=== PATIENT | female | born 1965 | race Caucasian/White ===

== ENCOUNTER 2017-08-29 17:56 | Inpatient (IN) | payer BC, OTHER ==
[~2017-08-29] VITALS: Ht 167.6 cm; Wt 59.0 kg
[2017-08-29 18:25] VITALS: BP 144/94
--- NOTE | 2017-08-29 18:27 | NUR ---
INTAKE PRE-ADMISSION Pt is in intake office at this time with spouse at side. 52 year old female admitted for ETOH withdrawals. Pt is A/O x4, speech is clear and coherent. Pt states she last drank 1/2 bottle of wine and "some Vodka, a few hours ago." Reports hx of withdrawal seizures, last seizure was in March 2017. V/S are 144/94, HR is 115, SpO2 is 97% room air, denies pain. Pt reports medical hx of hypothyroidism and dry eyes. Admitting nurse to complete assessment when patient arrives on unit.
[2017-08-29] MEDS ORDERED: LORAZEPAM 1 MG TABLET PO PRN (19:15)
[2017-08-29] MEDS ORDERED: ONDANSETRON ODT 4 MG TAB.RAPDIS SL PRN (19:15)
[2017-08-29] MEDS ORDERED: MIRALAX 17 GM POWD.PACK PO PRN (19:15)
[2017-08-29] MEDS ORDERED: LORAZEPAM 2 MG/1 ML VIAL IM PRN (19:15)
[2017-08-29] MEDS ORDERED: LOPERAMIDE HCL 2 MG CAPSULE PO PRN ×2 (19:15)
[2017-08-29] MEDS ORDERED: MAG HYDROX/AL HYDROX/SIMETH 30 ML LIQUID UDC PO PRN (19:15)
[2017-08-29] MEDS ORDERED: ACETAMINOPHEN 325 MG TABLET PO PRN (19:15)
[2017-08-29] MEDS ORDERED: ONDANSETRON 4 MG/2 ML VIAL IM PRN (19:15)
[2017-08-29 20:00] VITALS: BP 130/70
[2017-08-29 20:21] LABS: BASOPHILS % (AUTO) 0.5 % (0.0-2.0); EOSINOPHILS % (AUTO) 0.7 % (0.0-7.0); HEMATOCRIT 41.2 % (37-47); HEMOGLOBIN 13.9 G/DL (12.0-16.0); LYMPHOCYTES % (AUTO) 31.6 % (20.5-51.5); MEAN CORPUSCULAR HEMOGLOBIN 33.1 UUG (27.0-31.0); MEAN CORPUSCULAR HGB CONC 34 g/dL (32.0-37.0); MEAN CORPUSCULAR VOLUME 98.4 FL (81.0-99.0); MONOCYTES # (AUTO) 0.4 K/UL (0.1-1.30); MONOCYTES % (AUTO) 10.8 % (0.0-11.0); NEUTROPHILS # (AUTO) 1.9 K/UL (1.8-8.9); NEUTROPHILS % (AUTO) 56.4 % (38.5-71.5); PLATELET COUNT (AUTO) 79 K/UL (150-450); RED BLOOD CELL COUNT(AUTO) 4.19 MIL/UL (4.2-5.4); WHITE BLOOD COUNT (AUTO) 3.3 K/UL (4.0-11.2)
[2017-08-29 20:30] LABS: *AMPHETAMINE, URINE NEGATIVE (NEGATIVE); *BARBITURATE, URINE NEGATIVE (NEGATIVE); *CANNABINOID, URINE NEGATIVE (NEGATIVE); *COCCAINE, URINE NEGATIVE (NEGATIVE); *OPIATE, URINE NEGATIVE (NEGATIVE); *PHENCYCLIDINE SCREEN,URINE NEGATIVE (NEGATIVE)
[2017-08-29 20:39] LABS: BILIRUBIN,TOTAL 0.4 mg/dL (0.2-1.0); CREATININE 0.7 mg/dL (0.6-1.3); MAGNESIUM 1.9 mg/dL (1.8-2.4); POTASSIUM 4.2 mmol/L (3.5-5.1); TOTAL PROTEIN, SERUM 8.8 g/dL (6.4-8.2)
[2017-08-29 20:59] LABS: *URINE HCG, QUAL NEGATIVE (NEGATIVE)
[2017-08-29] MEDS ORDERED: LORAZEPAM 1 MG TABLET PO ONE (21:00)
[2017-08-29 21:01] LABS: THYROID STIMULATING HORMONE 5.714 mIU/mL (0.358-3.740)
[2017-08-29 21:06] LABS: BAND % (MANUAL) 3 % (0-10); LYMPHOCYTES % (MANUAL) 29 % (20-40); MONOCYTES % (MANUAL) 9 % (2-10); NEUTROPHILS % (MANUAL) 59 % (42-75)
[2017-08-29] MEDS ORDERED: THIAMINE HCL 200 MG/2 ML VIAL IM ONE (21:22)
[2017-08-29] MEDS: OXCARBAZEPINE 150 MG TABLET PO SCH (21:24)
[2017-08-29] MEDS ORDERED: OXCARBAZEPINE 150 MG TABLET ONE (21:28)
[2017-08-29] MEDS ORDERED: THIAMINE HCL 200 MG/2 ML VIAL ONE (21:28)
--- NOTE | 2017-08-29 21:30 | NUR ---
The patient is a 52-year-old female who admitted to [facility] for evaluation of medically supervised withdrawal from alcohol. Time of admission is 20:20 on 08/29/2017. Pt. is acutely intoxicated, therefore initial assessment is incomplete (will be endorsed to the day RN). Pt. couldnt give information about PCP, vaccinations., longest sober period. She is NKA, Full Code, on Regular Diet. For the last two years, she reports consuming 1500mL of wine on a daily basis, last used on the day of present admission. She has struggled with multiple attempts at sobriety at home, states this is her first Detox. in the facility. She states her alcohol use has negatively impacted her life by impairing close relationships with family and negatively impacting her physical and mental health. The patient reports a history of withdrawal-induced seizures, last one in July 2017. She also sates multiple passive SI in the past. At the time of admission the patient was acutely intoxicated, hand tremor bilaterally. Pt. is alert, oriented x3, unsteady gate. Perrla. Skin warm and dry to touch. RR=16, even and unlabored. Bilateral hand tremors noted. HT=732/80, MQ=341, Spo2=97%, Temp=98.2, denies pain. Mznqau=157dci, Height=56. CIWA=9 . Pt was oriented to room and unit. Pt. was able to provide UDS sample , see results in the PC chart. Safety measures in place : bed on lowest position with side rails x2 up for safety, call light within reach. Will continue to monitor closely and offer help. SUBSTANCE ABUSE HISTORY : ETOH/Wine 1500ml QD PO last 2 years, last use on 08/29/2017, uses since 1976. Pt. occasionally uses Marijuana. PAST Tx HISTORY : It is her first Detox. PAST MEDICAL HISTORY : Hypothyroidism , Anxiety disorder , Depression, Dry Eyes , Insomnia. Past Family History Her father because pancreatic CA, mother because of ETOH abuse.
[2017-08-30] VITALS: BP 102/67
[2017-08-30] MEDS ORDERED: S-AD400T3 PO (03:16)
[2017-08-30] MEDS ORDERED: BIMA2.5D5 (03:17)
[2017-08-30] MEDS ORDERED: LEVO75TA7 PO (03:18)
[2017-08-30] MEDS ORDERED: TRET20CR5 TP (03:19)
[2017-08-30 04:00] VITALS: BP 137/97
--- NOTE | 2017-08-30 06:53 | NUR ---
END OF SHIFT NOTE : The patient is a 52-year-old female who admitted to [facility] on 08/29/2017 for evaluation of medically supervised withdrawal from alcohol. Pt. was acutely intoxicated, therefore initial assessment is incomplete (will be endorsed to the day RN). Pt. couldnt give information about PCP, vaccinations., longest sober period. She is NKA, Full Code, on Regular Diet. The patient reports a history of withdrawal-induced seizures, last one in July 2017. She also sates multiple passive SI in the past. Pt remains compliant with the treatment plan. No PRNs were given during my shift. V/S remain WNL. RR=16, even and unlabored, lungs clear upon auscultation, abdomen soft and non- distended. Pt denies nausea, vomiting and diarrhea. CIWA taken when pt. was alert during the night, LAST CIWA=5 at 0400 , INTAKE= 50 ml, voided x1 , slept 7 hours. Safety measures in place : bed on lowest position with side rails x2 up for safety, call light within reach. Will continue to monitor closely and offer help.
[2017-08-30] MEDS: LEVOTHYROXINE SODIUM 75 MCG TABLET PO SCH (07:06)
--- NOTE | 2017-08-30 08:00 | NUR ---
START OF SHIFT 52 year old female admitted for ETOH substance abuse and detox. Also history of Marijuana use. NKA. Fall and seizure precautions. History of anxiety, depression, insomnia, hypothyroidism, dry eye. History of seizure 05/2017. Received report from night RN. Last CIWA at 0500 was 5. Slept 7 hours. Pt unable to recall name of PCP and vaccine history upon admission. Day RN to follow up on this information with patient if she is able to recall. 0800 nursing rounds, Pt alert and oriented, very tremulous, reporting nausea. RN to start IVF NS at 125 ml /hr and start IV site. Side rails up x 2 and padded, bed in low position and locked. Call light within reach. Will continue to monitor.
[2017-08-30] MEDS: MULTIVITAMINS,THERAPEUTIC TABLET PO SCH (08:18)
[2017-08-30] MEDS: THIAMINE HCL 100 MG TABLET PO SCH (08:18)
[2017-08-30] MEDS: FOLIC ACID 1 MG TABLET PO SCH (08:18)
[2017-08-30] MEDS: LORAZEPAM 1 MG TABLET PO SCH ×4 (08:18→20:12)
[2017-08-30] MEDS: OXCARBAZEPINE 150 MG TABLET PO SCH (08:19)
[2017-08-30] MEDS: IV NS 1000 ML 1,000 ML IV SCH ×3 (08:20→20:13)
--- NOTE | 2017-08-30 08:31 | NUR ---
PRN MEDICATION ADMINISTRATION Pt with severe nausea, almost unable to swallow oral medications. Given PRN Zofran 4 mg IM. Will reassess.
[2017-08-30] MEDS ORDERED: TUBERCULIN,PURIF.PROT.DERIV. 5 TU/0.1 ML TEST ID ONE (09:00)
--- NOTE | 2017-08-30 09:01 | NUR ---
PRN MEDICATION REASSESSMENT Pt reports decrease in nausea post administration of Zofran IM at 0831. Will continue to monitor.
[2017-08-30] MEDS: LORAZEPAM 1 MG TABLET PO PRN (10:19)
--- NOTE | 2017-08-30 10:19 | NUR ---
PRN MEDICATION ADMINISTRATION Pt noted to have increased tremors. CIWA reassessed and is 15. Given PRN Ativan 1 mg PRN. Will reassess.
--- NOTE | 2017-08-30 11:03 | NUR ---
Therapist prompted client to attend group today, client agreed if she felt up to it she would attend.
--- NOTE | 2017-08-30 11:19 | NUR ---
PRN MEDICATION ADMINISTRATION CIWA 3 one hour after administration of PRN Ativan for CIWA 15 at 1019.
[2017-08-30 12:00] VITALS: BP 132/94
[2017-08-30 13:00] VITALS: BP 147/96
--- NOTE | 2017-08-30 13:00 | NUR ---
Assumed Care: Assumed Care for the patient at this time. Patient is a 52 year old female admitted for ETOH dependence who was placed on a 5-day Ativan taper that was started at 0900 today. Patient is tolerating current taper well. No adverse reactions noted. On IV of NS at 125cc/hr for hydration. IV site to right AC patent and intact. No s/s of infiltration noted. Patient was placed on 1:1 for safety at this time due to unsteady gait related to severe gross tremors. Current CIWA 15. Denies AV hallucinations and S/I or H/I noted. Will continue to monitor.
--- NOTE | 2017-08-30 13:12 | NUR ---
TRANSITION OF CARE NOTE Transition from Day RN to new Day RN. Report given to new RN. 52 year old female admitted for ETOH substance abuse and detox. Also history of Marijuana use. NKA. Fall and seizure precautions. History of anxiety, depression, insomnia, hypothyroidism, dry eye. History of seizure 05/2017. CIWA 15 at 0818, given scheduled Ativan and additional Ativan 1 mg PRN. CIWA at 1119 was 3. At 1220 Pt was asleep. Zofran IM PRN given at 0831 for severe nausea with resolution of nausea. Bedside report done. NS IVF at 125 cc/hr infusing in right arm IV placed today at 0830. BP 132/94 at 1200. BP repeated at 1312, BP now 147/96, reported to new RN and new RN to medicate PRN for HTN. Assisted to restroom. Pt weak and tremulous. 1:1 monitor ordered for safety. Side rails up x 2 and padded, bed in low position and locked. Call light within reach.
[2017-08-30] MEDS: DICYCLOMINE HCL 20 MG TABLET PO PRN (13:16)
[2017-08-30] MEDS: CLONIDINE HCL 0.1 MG TABLET PO PRN ×2 (13:16→20:12)
--- NOTE | 2017-08-30 13:16 | NUR ---
Bentyl 20 mg PO/Clonidine 0.1mg PO given: Patient complained of abdominal spasms, and sweating, chills. BP 147/97. Medicated patient with Bentyl 20 mg PO and Clonidine 0.1mg PO as ordered. Will monitor for effectiveness.
--- NOTE | 2017-08-30 14:16 | NUR ---
Re-assessment: Per patient, PRN Bentyl was effective in reducing abdominal spasms, less anxiety, less sweating noted. BP 132/81.
[2017-08-30 16:00] VITALS: BP 126/95
--- NOTE | 2017-08-30 16:40 | NUR ---
Therapist prompted client to attend groups when she feels better.
--- NOTE | 2017-08-30 18:39 | NUR ---
OT Ativan 2 mg PO given: OT Ativan 2 mg PO given per MD, due to CIWA 10. Patient continues to have gross tremors and sweats. Denies S/I or AV hallucinations. Will monitor for effectiveness.
--- NOTE | 2017-08-30 18:46 | NUR ---
Add'l admission notes: Patient states that her PCP is Dr. John from [place] and refused to receive PNA and FLU VACCINE. Education provided.
--- NOTE | 2017-08-30 18:53 | NUR ---
End of Shift Notes: Patient continues to be on 5-day Ativan taper as ordered. No adverse reactions noted. Patient is tolerating taper well. No adverse reactions noted. VS monitored closely. Medicated patient with Clonidine 0.1mg PO at 1316 for BP 147/97 with help after 1 hour. Withdrawal symptoms were closely monitored. Initial CIWA 15, patient presented with gross tremors, sweating, nausea, anxiety and agitation. Medicated patient with Zofran 4 mg IM at 0831, additional Ativan 1 mg PO at 1019, Bentyl 20 mg PO at 1316 with help after 1 hour. Last CIWA 8. Patient continues to be on IVF for hydration of NS at 125cc/hr. Tolerating well. IV site to right AC patent and intact. Flushed adequately per units protocol. OT Ativan 2 mg PO given at 1839 due to CIWA 10. Results pending. Patient on 1:1 for safety due to unsteady gait and severe gross tremors. Requires sitter at bedside. Unable to participate in group due to her withdrawal symptoms. All needs met and attended. Will continue to monitor closely.
[2017-08-30] MEDS ORDERED: LORAZEPAM 1 MG TABLET PO ONE (19:00)
--- NOTE | 2017-08-30 19:30 | NUR ---
START OF SHIFT Pt is a 52 y/o female admitted on 08/29/17 for ETOH dependence. Pt was dependent on 1,500 ml of wine daily for 2 years. Pt is full code, NKA, regular diet. Pt reports withdrawal related seizures, last in July 2017. Pt reports PMH of anxiety, depression , hypothyroidism, insomnia, dry eyes, rosacea and laryngeal cancer (currently in remission). Pt is on a 5 day Ativan taper started today, tolerating well. Pt is on a 1:1 sitter for safety r/t unsteady gait. Pt has IV in right AC, no redness or swelling noted. 0.9% NS running at 125 ml/hr per order d/t minimal tolerance of oral intake. Upon assessment pt is laying in bed watching TV, sitter at bedside. Pt presents with anxiety, pain at IV site 5/10, decreased appetite, headache, difficulty concentrating, anhedonia, gross tremors, unsteady gait, and photosensitivity. Respirations 16, even and unlabored. Denies N/V/D. Denies chest pain or SOB. Medications due. Safety measures in place. Call light within reach. Will continue to monitor.
--- NOTE | 2017-08-30 19:40 | NUR ---
2 MG ATIVAN REASSESSMENT CIWA 3. Tremors, anxiety, and sweats decreased. Pt verbalizes improvement in symptoms. Safety measures in place Call light within reach. Will continue to monitor. Addendum: 08/31/17 at 0011 by MELBA COUGHLIN RN 1:1 sitter at bedside.
[2017-08-30 20:00] VITALS: BP 148/97
[2017-08-30] MEDS: diphenhydrAMINE 50 MG CAPSULE PO PRN (20:12)
[2017-08-30] MEDS: IBUPROFEN 400 MG TABLET PO PRN (20:12)
--- NOTE | 2017-08-30 20:12 | NUR ---
PRN MOTRIN 400 MG, BENADRYL 50 MG AND CLONIDINE 0.1 MG ADMINISTRATION Pt has pain at IV site and near left UA, described as a "strain" feeling in UA 03/14. Pt requests sleep aid. BP 148/97, Clonidine administered per orders for BP > 140/90. Safety measures in place Call light within reach. Will continue to monitor. Addendum: 08/31/17 at 0011 by MELBA COUGHLIN RN 1:1 sitter at bedside.
[2017-08-30] MEDS ORDERED: OXCARBAZEPINE 300 MG TABLET PO SCH (21:00)
--- NOTE | 2017-08-30 21:12 | NUR ---
JIMBO LOCKE, BENADRYL AND CLONIDINE REASSESSMENT Pt is laying in bed with eyes closed. Safety measures in place Call light within reach. Will continue to monitor. Addendum: 08/31/17 at 0011 by MELBA COUGHLIN RN 1:1 sitter at bedside
[2017-08-31] VITALS: BP 124/85
--- NOTE | 2017-08-31 | NUR ---
CIWA DEFERRED Pt is laying in bed with eyes closed. Respirations 14, even and unlabored. Safety measures in place Call light within reach. Will continue to monitor.
[2017-08-31 04:00] VITALS: BP 135/99
--- NOTE | 2017-08-31 04:00 | NUR ---
CIWA DEFERRED Pt is laying in bed with eyes closed. Respirations 14, even and unlabored. Safety measures in place. Call light within reach. Will continue to monitor.
[2017-08-31] MEDS: IV NS 1000 ML 1,000 ML IV SCH ×3 (05:00→21:00)
[2017-08-31] MEDS: LEVOTHYROXINE SODIUM 75 MCG TABLET PO SCH (06:57)
--- NOTE | 2017-08-31 07:16 | NUR ---
END OF SHIFT Pt is a 52 y/o female admitted on 08/29/17 for ETOH dependence. Pt was dependent on 1500 ml of wine daily for 2 years. Pt is full code, NKA, regular diet, fall/seizure precautions. Pt reports withdrawal related seizures, last in July 2017. Pt reports PMH of anxiety, depression , hypothyroidism, insomnia, dry eyes, rosacea and laryngeal cancer (currently in remission). Pt is on a 5 day Ativan taper started today, tolerating well. Pt is on a 1:1 sitter for safety r/t unsteady gait. Pt has IV in right AC 22 gauge, no redness or swelling noted. IV site is patent and intact. 0.9% NS running at 125 ml/hr per orders. 1,000ml NS administered x 2 during shift. Pt presented with anxiety, pain at IV site 5/10 (decreased to 2/10 during shift), decreased appetite, headache, difficulty concentrating, anhedonia, gross tremors, unsteady gait, and photosensitivity. Scheduled medications and PRN Benadryl, Motrin and Clonidine administered, effective in S/S of withdrawal as verbalized by pt. Last CIWA 3, all other CIWAs deferred d/t pt laying in bed with eyes closed throughout the night. Denies N/V/D. Slept 7 hours, intake 50 ml, void x 3, stool x 0. Safety measures in place. Call light within reach. Pts needs have been met. Endorsed to day shift nurse.
--- NOTE | 2017-08-31 07:25 | NUR ---
Start of shift note SBAR report rcv'd. Pt was admitted for ETOH dependence. Pt denies any allergies, is a full code and on a regular diet. Pt has a PMHx of dry eyes, anxiety, depression, seizures, hypothyroidism, insomnia, s/p laryngeal cancer, and rosacea. Pt has IVF fluids, NS infusing at 125ml/hr to R AC. Pt is on a 1:1 for safety, sitter is at the bedside. Pt has no complaints at this time. Will continue to monitor pt. Pt is on day 2 of her 5 day ativan taper. All needs addressed at tis time.
[2017-08-31 08:00] VITALS: BP 99/58
[2017-08-31] MEDS: FOLIC ACID 1 MG TABLET PO SCH (08:04)
[2017-08-31] MEDS: LORAZEPAM 1 MG TABLET PO SCH ×3 (08:04→20:08)
[2017-08-31] MEDS: THIAMINE HCL 100 MG TABLET PO SCH (08:04)
[2017-08-31] MEDS: MULTIVITAMINS,THERAPEUTIC TABLET PO SCH (08:04)
[2017-08-31 08:43] LABS: BILIRUBIN,DIRECT 0.2 mg/dL (0.0-0.2); BILIRUBIN,TOTAL 0.8 mg/dL (0.2-1.0); CREATININE 0.7 mg/dL (0.6-1.3); MAGNESIUM 1.7 mg/dL (1.8-2.4); PHOSPHOROUS 3.2 mg/dL (2.5-4.9); POTASSIUM 3.9 mmol/L (3.5-5.1)
--- NOTE | 2017-08-31 08:45 | NUR ---
IV site d/c Pt c/o pain 5/10 at IV site, bleeding and bruising noted to site. IV site d/c'd. Dr Pearson aware. Pt is a "hard stick". No veins visible at this time, checked by second RN. Pt PO fluids encouraged. Dr Pearson ok to d/c IV and fluids at this time. Pt verbalized her understanding. Will continue to monitor pt.
[2017-08-31] MEDS ORDERED: OXCARBAZEPINE 150 MG TABLET PO SCH (09:00)
[2017-08-31 11:49] LABS: BASOPHILS % (AUTO) 0.7 % (0.0-2.0); EOSINOPHILS # (AUTO) 0.1 K/uL (0.0-0.7); EOSINOPHILS % (AUTO) 3.3 % (0.0-7.0); HEMATOCRIT 37.7 % (37-47); HEMOGLOBIN 12.8 G/DL (12.0-16.0); LYMPHOCYTES # (AUTO) 0.3 K/UL (0.8-4.8); LYMPHOCYTES % (AUTO) 15.8 % (20.5-51.5); MEAN CORPUSCULAR HEMOGLOBIN 33.1 UUG (27.0-31.0); MEAN CORPUSCULAR HGB CONC 34 g/dL (32.0-37.0); MEAN CORPUSCULAR VOLUME 97.4 FL (81.0-99.0); MONOCYTES # (AUTO) 0.3 K/UL (0.1-1.30); MONOCYTES % (AUTO) 12.7 % (0.0-11.0); NEUTROPHILS # (AUTO) 1.5 K/UL (1.8-8.9); NEUTROPHILS % (AUTO) 67.5 % (38.5-71.5); RED BLOOD CELL COUNT(AUTO) 3.87 MIL/UL (4.2-5.4)
[2017-08-31 12:00] VITALS: BP 135/95
[2017-08-31 12:00] LABS: PLATELET COUNT (AUTO) 30 K/UL (150-450); WHITE BLOOD COUNT (AUTO) 2.2 K/UL (4.0-11.2)
--- NOTE | 2017-08-31 12:02 | NUR ---
CRITICAL LAB VALUE/ COMMUNICATION mechanical manufacturing technician Mally Gustafson called to report critical labs. WBC is 2.2 and Platelets are 30. Dr. Pearson notified and aware, NNO at this time. Primary nurse to follow up.
[2017-08-31 12:07] LABS: HEPATITIS B SURFACE AG Negative (Negative)
[2017-08-31] MEDS ORDERED: MAGNESIUM OXIDE 400 MG TABLET PO ONE ×2 (12:45→21:00)
[2017-08-31 13:05] LABS: BAND % (MANUAL) 5 % (0-10); EOSINOPHILS % (MANUAL) 2 % (0-8); LYMPHOCYTES % (MANUAL) 18 % (20-40); MONOCYTES % (MANUAL) 8 % (2-10); NEUTROPHILS % (MANUAL) 67 % (42-75)
--- NOTE | 2017-08-31 15:16 | NUR ---
Therapist met with client and prompted her to attend group. CLient will not attend today she is still in withdrawal.
[2017-08-31 16:00] VITALS: BP 147/104
[2017-08-31] MEDS: LORAZEPAM 1 MG TABLET PO PRN (16:13)
[2017-08-31] MEDS: CLONIDINE HCL 0.1 MG TABLET PO PRN ×2 (16:14→20:08)
--- NOTE | 2017-08-31 16:15 | NUR ---
PRN administration Pt c/o anxiety, has a CIWA of 13 and BP of 147/101 with a heart rate of 104. Administered PRN ativan and clonidine per MD order. Will continue to monitor pt.
--- NOTE | 2017-08-31 16:50 | NUR ---
communication, d/1 1:1 Pt states that she does not want to be on a the 1:1 sitter, notified Dr Pearson, gave OK to D/C 1:1. Pt educated on importance of using call light every time she wants to get up, and if pt is seen standing without assistance, she will be placed back on a 1:1. Pt verbalized her understanding. Call light within reach. Will continue to monitor pt.
--- NOTE | 2017-08-31 17:15 | NUR ---
Reassessment Pt has a CIWA of 6, states that she feels better and has a BP of 135/95 HR 79. Will continue to monitor pt.
[2017-08-31] MEDS ORDERED: hydrALAZINE HCL 50 MG TABLET PO PRN (18:15)
--- NOTE | 2017-08-31 18:47 | NUR ---
End of shift note Pt was admitted for ETOH dependence. Pt has a PMHx of dry eyes, anxiety, depression, seizures, hypothyroidism, insomnia, s/p laryngeal cancer, and rosacea. Pt denies any allergies, is a full code and on a regular diet. Pt IV fluids and 1:1 were d/cd during the shift. Pt had one PRN ativan and prn clonidine with effectiveness during the shift. Pt had a CIWA of 6 at 1714. Pt PO fluids encouraged and PO intake encouraged. Pt voided x 6 times and had 3 BMs during the shift. Pt has no complaints at this time. Will endorse SBAR to oncoming nurse.
--- NOTE | 2017-08-31 19:30 | NUR ---
START OF SHIFT Pt is a 52 y/o female admitted on 08/29/17 for ETOH dependence. Pt was dependent on 1,500 ml of wine daily for 2 years. Pt is full code, NKA, regular diet. Pt reports withdrawal related seizures, last in July 2017. Pt reports PMH of anxiety, depression , hypothyroidism, insomnia, dry eyes, rosacea and laryngeal cancer (currently in remission). Pt is on a 5 day Ativan taper started on 08/30/17, tolerating well. Orders for 1:1 sitter d/c, pt has improvement with unsteady gait, but pt states she will use call light when need to get out of bed. Pt verbalized understanding that 1:1 will be ordered if she is out of bed without assistance. IV d/c today, pt tolerating fluids and food. Upon assessment pt is laying in bed and presents with depressed affect and is in tears r/t feelings of anxiety. Pt also presents with decreased appetite, chronic low back pain 4/10, headache, difficulty concentrating, anhedonia, gross tremors, unsteady gait and photosensitivity. Respirations 16, even and unlabored. Denies N/V/D. Denies chest pain or SOB. Medications due. Safety measures in place. Call light within reach. Will continue to monitor.
[2017-08-31 20:00] VITALS: BP 140/98
[2017-08-31] MEDS: OXCARBAZEPINE 300 MG TABLET PO SCH (20:08)
--- NOTE | 2017-08-31 20:08 | NUR ---
PRN CLONIDINE AND MOTRIN ADMINISTRATION BP 140/98, orders to give if BP > 140/90. Pt also reports pain in lower back (chronic) 02/12. Safety measures in place. Call light within reach. Will continue to monitor.
[2017-08-31] MEDS: IBUPROFEN 400 MG TABLET PO PRN (20:09)
--- NOTE | 2017-08-31 21:00 | NUR ---
NON ADMIN IVF Pt has D/C IV per orders. Pt continues to tolerate fluids/food. Encouraged further fluid intake. Pt verbalizes understanding.
--- NOTE | 2017-08-31 21:08 | NUR ---
PRN CLONIDINE AND MOTRIN REASSESSMENT BP 132/76. Pt reports pain 0/10 in back. Pt is laying in bed with eyes closed. Safety measures in place. Call light within reach. Will continue to monitor.
[2017-09-01] VITALS: BP 138/97
--- NOTE | 2017-09-01 | NUR ---
CIWA DEFERRED Pt is laying in bed with eyes closed, CIWA deferred, to be assessed when pt is fully awake per orders. Respirations 16, even and unlabored. Safety measures in place. Call light within reach. Will continue to monitor.
[2017-09-01 04:00] VITALS: BP 138/85
[2017-09-01] MEDS: IV NS 1000 ML 1,000 ML IV SCH (05:00)
--- NOTE | 2017-09-01 05:00 | NUR ---
NON ADMIN IVF Pt has D/C IV per orders. Pt continues to tolerate fluids/food. Encouraged further fluid intake. Pt verbalizes understanding. Pt is laying in bed with eyes closed. Safety measures in place. Call light within reach. Will continue to monitor.
[2017-09-01] MEDS: LEVOTHYROXINE SODIUM 75 MCG TABLET PO SCH (07:07)
--- NOTE | 2017-09-01 07:15 | NUR ---
Start of shift note SBAR report rcv'd. Pt was admitted for ETOH dependence. Pt denies any allergies, is a full code and on a regular diet. Pt has a PMHx of dry eyes, anxiety, depression, seizures, hypothyroidism, insomnia, s/p laryngeal cancer, and rosacea. Pt is currently resting in bed, pt verbalized her understanding of the importance of calling for assistance when ambulating. Pt is on day 3 of her ativan taper and tolerating well per report. Pt is scheduled to have a PT evaluation done during the shift. Pt has no complaints at this time. Will continue to monitor pt.
--- NOTE | 2017-09-01 07:15 | NUR ---
END OF SHIFT Pt is a 52 y/o female admitted on 08/29/17 for ETOH dependence. Pt was dependent on 1,500 ml of wine daily for 2 years. Pt is full code, NKA, regular diet. Pt reports withdrawal related seizures, last in July 2017. Pt reports PMH of anxiety, depression , hypothyroidism, insomnia, dry eyes, rosacea and laryngeal cancer (currently in remission). Pt is on a 5 day Ativan taper started on 08/30/17, tolerating well. Orders for 1:1 sitter d/c yesterday, pt has slight improvement with unsteady gait, pt states she will use call light when needs to get out of bed. Pt verbalized understanding that 1:1 will be ordered if she is out of bed without assistance. IV d/c yesterday, pt tolerating fluids and food. Pt presented with depressed affect and was tearful r/t feelings of anxiety. Pt also presented with decreased appetite, chronic low back pain 4/10, headache, difficulty concentrating, anhedonia, gross tremors, unsteady gait and photosensitivity. Scheduled medications and PRN Clonidine and Motrin administered, effective in S/S of withdrawal as verbalized by pt. Last CIWA 7 at 1999, all other CIWAs deferred d/t pt sleeping. Pt slept 9 hours. Intake 1291 ml, void x 2, stool x 0. Safety measures in place. Call light within reach. Pts needs have been met. Endorsed to day shift nurse.
[2017-09-01 08:00] VITALS: BP 91/61
[2017-09-01 08:44] LABS: BASOPHILS % (AUTO) 0.5 % (0.0-2.0); EOSINOPHILS # (AUTO) 0.1 K/uL (0.0-0.7); EOSINOPHILS % (AUTO) 3.6 % (0.0-7.0); HEMATOCRIT 38.8 % (37-47); HEMOGLOBIN 13.4 G/DL (12.0-16.0); LYMPHOCYTES # (AUTO) 0.5 K/UL (0.8-4.8); LYMPHOCYTES % (AUTO) 18.9 % (20.5-51.5); MEAN CORPUSCULAR HEMOGLOBIN 33.9 UUG (27.0-31.0); MEAN CORPUSCULAR HGB CONC 35 g/dL (32.0-37.0); MEAN CORPUSCULAR VOLUME 98.3 FL (81.0-99.0); MONOCYTES # (AUTO) 0.3 K/UL (0.1-1.30); MONOCYTES % (AUTO) 11.3 % (0.0-11.0); NEUTROPHILS # (AUTO) 1.8 K/UL (1.8-8.9); NEUTROPHILS % (AUTO) 65.7 % (38.5-71.5); RED BLOOD CELL COUNT(AUTO) 3.95 MIL/UL (4.2-5.4); WHITE BLOOD COUNT (AUTO) 2.7 K/UL (4.0-11.2)
[2017-09-01 08:49] LABS: CREATININE 0.6 mg/dL (0.6-1.3); MAGNESIUM 1.6 mg/dL (1.8-2.4); PHOSPHOROUS 3.5 mg/dL (2.5-4.9); POTASSIUM 3.5 mmol/L (3.5-5.1)
[2017-09-01 08:50] LABS: PLATELET COUNT (AUTO) 41 K/UL (150-450)
[2017-09-01] MEDS: MULTIVITAMINS,THERAPEUTIC TABLET PO SCH (08:54)
[2017-09-01] MEDS: THIAMINE HCL 100 MG TABLET PO SCH (08:54)
[2017-09-01] MEDS: LORAZEPAM 1 MG TABLET PO SCH ×3 (08:54→16:37)
[2017-09-01] MEDS: FOLIC ACID 1 MG TABLET PO SCH (08:54)
[2017-09-01] MEDS: OXCARBAZEPINE 300 MG TABLET PO SCH ×2 (08:54→21:07)
[2017-09-01] MEDS ORDERED: LORAZEPAM 1 MG TABLET PO SCH ×2 (09:00→21:00)
[2017-09-01 09:38] LABS: BAND % (MANUAL) 2 % (0-10); EOSINOPHILS % (MANUAL) 4 % (0-8); LYMPHOCYTES % (MANUAL) 20 % (20-40); MONOCYTES % (MANUAL) 8 % (2-10); NEUTROPHILS % (MANUAL) 66 % (42-75)
[2017-09-01 12:00] VITALS: BP 138/100
[2017-09-01] MEDS ORDERED: MAGNESIUM OXIDE 400 MG TABLET PO ONE (12:15)
[2017-09-01] MEDS: CLONIDINE HCL 0.1 MG TABLET PO PRN (14:09)
--- NOTE | 2017-09-01 14:10 | NUR ---
PRN administration Pt c/o anxiety, BP checked, noted to be 146/104, HR 105. Administered PRN clondine per MD order. Will continue to monitor pt. Encouraged pt to verbalize her feelings to work through her emotions.
--- NOTE | 2017-09-01 15:10 | NUR ---
Reassessment Pt states that she is "feeling a little better, especially after talking with my ." Pt BP noted to be 135/99 HR is 97. Will continue to monitor pt. Pt reminded about asking for assistance with ambulation, pt verbalized her understanding. Order to d/c 1:1 d/c'd late, Dr Pearson was unable to d/c order on 08/31/17.
[2017-09-01 16:30] VITALS: BP 130/96
--- NOTE | 2017-09-01 18:54 | NUR ---
End of shift note Pt was admitted for ETOH dependence. Pt has a PMHx of dry eyes, anxiety, depression, seizures, hypothyroidism, insomnia, s/p laryngeal cancer, and rosacea. Pt denies any allergies, is a full code and on a regular diet. Pt is currently resting in bed, pt verbalized her understanding of the importance of calling for assistance when ambulating. Pt is on day 3 of her ativan taper and tolerating well without any ASE. pt was evaluated by PT and will start physical therapy daily to improve her gait. Pt has an abdominal ultrasound scheduled for tomorrow morning, pt is to be NPO after midnight. Pt verbalized her understanding. All needs addressed at this time. Will endorse SBAR to oncoming nurse.
--- NOTE | 2017-09-01 19:30 | NUR ---
START OF SHIFT Pt is a 52 y/o female admitted on 08/29/17 for ETOH dependence. Pt was dependent on 1,500 ml of wine daily for 2 years. Pt is full code, NKA, regular diet. Pt reports withdrawal related seizures, last in July 2017. Pt reports PMH of anxiety, depression , hypothyroidism, insomnia, dry eyes, rosacea and laryngeal cancer (currently in remission). Pt is on a 5 day Ativan taper started on 08/30/17, tolerating well. Pt has hx of being on 1:1 for unsteady gait. Unsteady gait is improved and pt instructed to use call light when she needs to get out of bed, she verbalized understanding. Upon assessment pt is laying in bed and presents with depressed affect, anxiety, fatigue, occasional sense of panic, restlessness, decreased appetite, difficulty concentrating, anhedonia, fine/gross tremors, and photosensitivity. Respirations 16, even and unlabored. Denies N/V/D. Denies chest pain or SOB. Medications due. Safety measures in place. Call light within reach. Will continue to monitor. Addendum: 09/01/17 at 2146 by MELBA COUGHLIN RN PT IS NPO AFTER MIDNIGHT FOR ABDOMINAL U/S TOMORROW, INSTRUCTED PT, SHE VERBALIZED UNDERSTANDING.
[2017-09-01 20:00] VITALS: BP 123/88
[2017-09-01] MEDS: diphenhydrAMINE 50 MG CAPSULE PO PRN (21:07)
--- NOTE | 2017-09-01 21:07 | NUR ---
PRN BENADRYL 50 MG ADMINISTRATION Pt requests sleep aid. Safety measures in place. Call light within reach. Reminded client to use call light when she needs to get out of bed. Reminded client NPO after midnight (except meds) for abdominal Ultrasound tomorrow. Client verbalized understanding. Will continue to monitor.
--- NOTE | 2017-09-01 22:07 | NUR ---
PRN BENADRYL REASSESSMENT Pt is laying in bed with eyes closed. Safety measures in place. Call light within reach. Will continue to monitor.
[2017-09-02] VITALS: BP 135/97
[2017-09-02] MEDS: DICYCLOMINE HCL 20 MG TABLET PO PRN (00:21)
[2017-09-02] MEDS: CLONIDINE HCL 0.1 MG TABLET PO PRN ×2 (00:22→18:27)
--- NOTE | 2017-09-02 00:22 | NUR ---
PRN CLONIDINE AND BENTYL ADMINISTRATION BP 135/97, orders to give if BP between 140-159/90-99. Pt also complains of stomach cramps 5/10. Stomach cramps likely related to loose/watery stools. Pt has had 3 stools total in past 24 hours, will continue to monitor if need Imodium. Safety measures in place. Reminded client she is NPO and to use call light to get out of bed, pt verbalized understanding. Will continue to monitor.
--- NOTE | 2017-09-02 01:22 | NUR ---
PRN BENTYL AND CLONIDINE REASSESSMENT Pt is laying in bed with eyes closed. Will continue to monitor abdominal spasms when pt is awake. Safety measures in place. Call light within reach.
--- NOTE | 2017-09-02 04:00 | NUR ---
VITALS REFUSED AND CIWA DEFERRED Pt is laying in bed with eyes closed, CIWA deferred, to be assessed when pt is fully awake per orders. Pt refused vitals. Respirations 16, even and unlabored. Safety measures in place. Call light within reach. Will continue to monitor.
[2017-09-02] MEDS: LEVOTHYROXINE SODIUM 75 MCG TABLET PO SCH (06:51)
--- NOTE | 2017-09-02 07:14 | NUR ---
END OF SHIFT Pt is a 52 y/o female admitted on 08/29/17 for ETOH dependence. Pt was dependent on 1,500 ml of wine daily for 2 years. Pt is full code, NKA, regular diet. Pt reports withdrawal related seizures, last in July 2017. Pt reports PMH of anxiety, depression , hypothyroidism, insomnia, dry eyes, rosacea and laryngeal cancer (currently in remission). Pt is on a 5 day Ativan taper started on 08/30/17, tolerating well. Pt has hx of being on 1:1 for unsteady gait. Unsteady gait improved and pt instructed to use call light when she needs to get out of bed, she verbalized understanding. Pt NPO after midnight except meds for abdominal U/S scheduled today, client verbalized understanding and was. Pt presented with depressed affect, anxiety, fatigue, occasional sense of panic, restlessness, decreased appetite, difficulty concentrating, anhedonia, fine/gross tremors, stomach cramps, loose/watery stool and photosensitivity. Scheduled medications and PRN Benadryl, Clonidine and Bentyl administrated, effective in S/S of withdrawal AEB CIWA 6 lowered to CIWA 3 during shift. Pt slept 9 hours. Intake 100 ml, void x 2, stool x 1. Safety measures in place. Call light within reach. Pts needs have been met. Endorsed to day shift nurse.
--- NOTE | 2017-09-02 07:46 | NUR ---
START OF SHIFT NOTE Received report from night nurse, 52 year old male admitted for ETOH dependence. Patient has a PMH of anxiety, depression , hypothyroidism, insomnia, dry eyes, rosacea and laryngeal cancer (currently in remission). Patient cont on 5 days Ativan taper tolerating well. Per endorsement patient received PRN Benadryl, Clonidine, Bentyl effective per night nurse, Patient slept for 9 hours, Last CIWA was-3. Per endorsement patient is NPO for abdominal ultrasound, after mid night expect Meds,Patient received awake,alert and oriented x4, Educated patient regarding plan of care for the day and medication regimen with good verbal understanding. Safety measures in place. call light with in reach, will continue to monitor.
[2017-09-02 08:00] VITALS: BP 107/75
[2017-09-02] MEDS: THIAMINE HCL 100 MG TABLET PO SCH (08:37)
[2017-09-02] MEDS: MULTIVITAMINS,THERAPEUTIC TABLET PO SCH (08:37)
[2017-09-02] MEDS: OXCARBAZEPINE 300 MG TABLET PO SCH ×2 (08:37→21:09)
[2017-09-02] MEDS: LORAZEPAM 1 MG TABLET PO SCH ×3 (08:37→21:09)
[2017-09-02] MEDS: FOLIC ACID 1 MG TABLET PO SCH (08:37)
[2017-09-02 09:11] LABS: CREATININE 0.6 mg/dL (0.6-1.3); MAGNESIUM 1.7 mg/dL (1.8-2.4); PHOSPHOROUS 4.1 mg/dL (2.5-4.9)
[2017-09-02 09:15] LABS: *RHEUMATOID FACTOR SCREEN NEGATIVE (NEGATIVE)
[2017-09-02 11:05] LABS: BASOPHILS % (AUTO) 0.4 % (0.0-2.0); EOSINOPHILS # (AUTO) 0.1 K/uL (0.0-0.7); EOSINOPHILS % (AUTO) 3.5 % (0.0-7.0); HEMATOCRIT 38.6 % (37-47); HEMOGLOBIN 13.1 G/DL (12.0-16.0); LYMPHOCYTES # (AUTO) 0.7 K/UL (0.8-4.8); LYMPHOCYTES % (AUTO) 20.6 % (20.5-51.5); MEAN CORPUSCULAR HEMOGLOBIN 33.1 UUG (27.0-31.0); MEAN CORPUSCULAR HGB CONC 34 g/dL (32.0-37.0); MONOCYTES # (AUTO) 0.6 K/UL (0.1-1.30); MONOCYTES % (AUTO) 16.3 % (0.0-11.0); NEUTROPHILS % (AUTO) 59.2 % (38.5-71.5); RED BLOOD CELL COUNT(AUTO) 3.94 MIL/UL (4.2-5.4); WHITE BLOOD COUNT (AUTO) 3.4 K/UL (4.0-11.2)
[2017-09-02 11:07] LABS: PLATELET COUNT (AUTO) 67 K/UL (150-450)
[2017-09-02 12:00] VITALS: BP 137/96
[2017-09-02 12:32] LABS: BAND % (MANUAL) 3 % (0-10); EOSINOPHILS % (MANUAL) 3 % (0-8); LYMPHOCYTES % (MANUAL) 20 % (20-40); MONOCYTES % (MANUAL) 11 % (2-10); NEUTROPHILS % (MANUAL) 63 % (42-75)
[2017-09-02] MEDS ORDERED: POTASSIUM CHLORIDE 20 MEQ TAB.PRT.SR PO ONE (14:45)
[2017-09-02] MEDS ORDERED: MAGNESIUM OXIDE 400 MG TABLET PO ONE (14:45)
[2017-09-02 16:00] VITALS: BP 140/89
--- NOTE | 2017-09-02 18:27 | NUR ---
PRN CLONIDINE Patient blood pressure noted 150/91, PRN Clonidine given as ordered. Will cont to monitor and reassess.
--- NOTE | 2017-09-02 19:08 | NUR ---
END OF SHIFT NOTE Pt cont on 5 days Ativan taper tolerating well. Pt received PRN Clonidine 01.mg endorsed to night nurse to reassess the pt. Pt compliant with medication and plan of care. Pt attend group and activity. Encouraged Po fluids as ordered. Pt's last CIWA score was 4,at 1600. Vital signs WNL. All needs met. Safety measures in place, call light within reach. Pt endorsed to night nurse in stable condition.
--- NOTE | 2017-09-02 19:27 | NUR ---
START OF SHIFT Patient is 52-year-old female admitted on 08/29/17 for ETOH dependence. Patient has a medical history of anxiety, depression, hypothyroidism, insomnia, laryngeal cancer (remission), rosacea, dry eyes, glaucoma, and seizure history; last seizure in July of 2017. Patient is currently on 5 day Ativan taper, tolerating well. Upon assessment, was sleeping in her bed, responsive to name. Once awake, patient is alert and oriented x4, breathing unlabored, no distress noted at this time. Patient is on fall and seizure precautions, safety measures in place. Patient's bed is locked in low position, side rails up x2, call light within reach. Will continue to monitor.
--- NOTE | 2017-09-02 19:28 | NUR ---
PRN CLONIDINE REASSESSMENT Patient's BP is 133/99, systolic is lower than when Clonidine was first given. Patient's diastolic BP is still elevated. Safety measures are in place, call light within reach, will continue to monitor.
[2017-09-02 20:00] VITALS: BP 133/98
[2017-09-02] MEDS: BIMATOPROST 0.01% OPHT DROP 2.5 ML BOTTLE OP SCH (21:10)
[2017-09-03] VITALS: BP 130/82
--- NOTE | 2017-09-03 | NUR ---
MIDNIGHT CIWA DEFERRED Midnight CIWA score deferred, unable to score while patient is asleep; to be assessed while patient is awake per protocol. Safety measures in place, call light within reach, will continue to monitor.
--- NOTE | 2017-09-03 04:00 | NUR ---
0400 CIWA DEFERRED Patient is asleep, CIWA deferred. CIWA is to be assessed and scored when patient is awake per protocol. Patient's breathing is even and unlabored, safety measures in place, call light within reach, will continue to monitor.
[2017-09-03 04:06] VITALS: BP 140/96
[2017-09-03] MEDS ORDERED: LEVOTHYROXINE SODIUM 75 MCG TABLET PO SCH (07:00)
[2017-09-03 07:10] LABS: BASOPHILS % (AUTO) 0.4 % (0.0-2.0); EOSINOPHILS # (AUTO) 0.1 K/uL (0.0-0.7); EOSINOPHILS % (AUTO) 3.8 % (0.0-7.0); HEMATOCRIT 36.5 % (31.2-41.9); HEMOGLOBIN 12.9 g/dL (10.9-14.3); LYMPHOCYTES # (AUTO) 0.8 K/uL (20.0-40.0); LYMPHOCYTES % (AUTO) 22.4 % (20.5-51.5); MEAN CORPUSCULAR HEMOGLOBIN 34.9 uug (24.7-32.8); MEAN CORPUSCULAR HGB CONC 35 g/dL (32.3-35.6); MEAN CORPUSCULAR VOLUME 98.9 fL (75.5-95.3); MONOCYTES # (AUTO) 0.8 K/uL (2.0-10.0); MONOCYTES % (AUTO) 21.7 % (0.0-11.0); NEUTROPHILS # (AUTO) 1.8 K/uL (1.8-8.9); NEUTROPHILS % (AUTO) 51.7 % (38.5-71.5); PLATELET COUNT (AUTO) 100 K/uL (179-408); RED BLOOD CELL COUNT(AUTO) 3.69 MIL/uL (3.63-4.92); WHITE BLOOD COUNT (AUTO) 3.5 K/uL (3.8-11.8)
[2017-09-03 07:20] LABS: CREATININE 0.7 mg/dL (0.6-1.3); MAGNESIUM 1.6 mg/dL (1.8-2.4); PHOSPHOROUS 4.5 mg/dL (2.5-4.9)
--- NOTE | 2017-09-03 07:24 | NUR ---
END OF SHIFT Patient is 52-year-old female admitted on 08/29/17 for ETOH dependence. Patient has a medical history of anxiety, depression, hypothyroidism, insomnia, laryngeal cancer (remission), rosacea, dry eyes, glaucoma, and seizure history; last seizure in July of 2017. Patient is currently on 5 day Ativan taper, tolerating well. Patient did not receive any PRNs. Last CIWA score was 4. Patient slept for 7 hours, total intake 385mL, void x2, stool x0. Patient is on fall and seizure precautions, safety measures in place. Patient's bed is locked in low position, side rails up x2, call light within reach. Will endorse to day shift.
--- NOTE | 2017-09-03 07:30 | NUR ---
START OF SHIFT NOTE Received report from night nurse, 52 year old male admitted for ETOH dependence. Patient has a PMH of anxiety, depression , hypothyroidism, insomnia, dry eyes, rosacea and laryngeal cancer (currently in remission). Patient cont on 5 days Ativan taper tolerating well. Per endorsement patient did not receive any PRN'S last CIWA-4, Slept for 7 hours. Patient received awake,alert and oriented x4, Educated patient regarding plan of care for the day and medication regimen with good verbal understanding. Safety measures in place. call light with in reach, will continue to monitor.
[2017-09-03] MEDS: LEVOTHYROXINE SODIUM 75 MCG TABLET PO SCH (07:50)
--- NOTE | 2017-09-03 07:50 | NUR ---
DUPLICATE SYNTHROID Duplicate order for Synthroid.
[2017-09-03 08:00] VITALS: BP 138/88
[2017-09-03] MEDS: FOLIC ACID 1 MG TABLET PO SCH (08:11)
[2017-09-03] MEDS: MULTIVITAMINS,THERAPEUTIC TABLET PO SCH (08:11)
[2017-09-03] MEDS: THIAMINE HCL 100 MG TABLET PO SCH (08:11)
[2017-09-03] MEDS: LORAZEPAM 1 MG TABLET PO SCH ×2 (08:11→21:53)
[2017-09-03] MEDS: OXCARBAZEPINE 300 MG TABLET PO SCH ×2 (08:11→21:53)
--- NOTE | 2017-09-03 08:19 | NUR ---
PRN IMODIUM Patient reported x3 episode of diarrhea, PRN Imodium given as ordered. Will con to monitor and reassess.
[2017-09-03] MEDS ORDERED: PATIENT MAY USE OWN MED- MD OK PO SCH (09:00)
--- NOTE | 2017-09-03 09:19 | NUR ---
IMODIUM REASSESSMENT Per pt Imodium was effective no episode of diarrhea.
[2017-09-03 09:59] LABS: BAND % (MANUAL) 5 % (0-10); EOSINOPHILS % (MANUAL) 2 % (0-8); LYMPHOCYTES % (MANUAL) 28 % (20-40); MONOCYTES % (MANUAL) 11 % (2-10); NEUTROPHILS % (MANUAL) 54 % (42-75)
[2017-09-03 12:00] VITALS: BP 136/86
--- NOTE | 2017-09-03 13:45 | NUR ---
Activity Group Note: Client participated in "Tobi" activity. Intervention was to increase task focus and leisure skills. Client appeared to have a anxious mood with congruent affect. She had a coherent and goal-directed thought process as she was able to understand and complete the task. Throughout the activity client stated, "This is fun getting to be together with other people." Client benefits from leisure activities and social interaction with peers. floor worker well service will continue to encourage participation in activity group in the future.
[2017-09-03 16:00] VITALS: BP 144/95
[2017-09-03] MEDS ORDERED: MAGNESIUM OXIDE 400 MG TABLET PO ONE ×3 (16:15→21:00)
[2017-09-03] MEDS: CLONIDINE HCL 0.1 MG TABLET PO PRN (16:50)
--- NOTE | 2017-09-03 16:50 | NUR ---
PRN CLONIDINE Patient blood pressure noted 144/95, PRN Clonidine 0.1mg given as ordered. Will cont to monitor and reassess.
--- NOTE | 2017-09-03 17:50 | NUR ---
CLONIDINE REASSESSMENT Patient's blood pressure noted 134/84,Clonidine effective.
--- NOTE | 2017-09-03 18:59 | NUR ---
END OF SHIFT NOTE Pt cont on 5 days Ativan taper tolerating well. Pt received PRN Clonidine 01.mg /Imodium noted to be effective. Patient's Magnesium level was low which was replaced it with 800mg mag-ox Po. Pt compliant with medication and plan of care. Pt attend group and activity. Encouraged Po fluids as ordered. Pt's last CIWA score was 5,at 1600. Vital signs WNL. All needs met. Safety measures in place, call light within reach. Pt endorsed to night nurse in stable condition.
[2017-09-03 20:00] VITALS: BP 137/91
--- NOTE | 2017-09-03 20:00 | NUR ---
Start of Shift Notes Received 52 year old male admitted 08/29/2017for ETOH dependence. Patient continue on 5 days Ativan taper tolerating well. Px has NKA, on regular diet and on Full Code. During the rounds at 1930, No complaints at the moment. Safety measures in place. Call light within reach. We'll continue to monitor.
[2017-09-03] MEDS: diphenhydrAMINE 50 MG CAPSULE PO PRN (21:53)
--- NOTE | 2017-09-03 21:53 | NUR ---
PRN Benadryl Px requested to have pill to help her sleep. Benadryl 50 mg/cap, 1 cap given PO as PRN med. We'll continue to monitor.
[2017-09-03] MEDS: PATIENT MAY USE OWN MED- MD OK TOP SCH (21:54)
[2017-09-03] MEDS: BIMATOPROST 0.01% OPHT DROP 2.5 ML BOTTLE OP SCH (21:54)
[2017-09-03] MEDS ORDERED: MAGNESIUM OXIDE 400 MG TABLET ONE (22:03)
[2017-09-04] VITALS: BP 134/95
--- NOTE | 2017-09-04 | NUR ---
CIWA deferred CIWA deferred due to the px is sleeping, to assess if the px is awake per doctor's order. Respirations are even and unlabored. We'll continue to monitor.
[2017-09-04 04:00] VITALS: BP 114/80
[2017-09-04 05:08] LABS: *IMMUNOGLOBULIN G, SERUM 1115 mg/dL (700-1600); IMMUNOGLOBULIN A, SERUM 330 mg/dL (87-352); IMMUNOGLOBULIN M, SERUM 75 mg/dL (26-217)
--- NOTE | 2017-09-04 06:58 | NUR ---
End of Shift Notes 52 year old male admitted 08/29/2017for ETOH dependence. Patient continue on 5 days Ativan taper tolerating well. Px has NKA, on regular diet and on Full Code. During the shift, Px requested to have pill to help her sleep. Benadryl 50 mg/cap, 1 cap given PO as PRN med. Oral intake of 500 ml, voided 1x, no BM. Slept for 9 hrs. Safety measures in place. Call light within reach. We'll continue to monitor.
[2017-09-04] MEDS: LEVOTHYROXINE SODIUM 75 MCG TABLET PO SCH (07:02)
--- NOTE | 2017-09-04 07:19 | NUR ---
START OF SHIFT NOTE Received report from night nurse, 52 year old male admitted for ETOH dependence. Patient has a PMH of anxiety, depression,hypothyroidism, insomnia, dry eyes, rosacea and laryngeal cancer (currently in remission). Patient cont on 5 days Ativan taper tolerating well. Per endorsement patient received PRN Benadryl last CIWA-3, Slept for 9 hours. Patient received awake,alert and oriented x4, Educated patient regarding plan of care for the day and medication regimen with good verbal understanding. Safety measures in place. call light with in reach, will continue to monitor.
[2017-09-04 08:00] VITALS: BP 139/87
[2017-09-04] MEDS: FOLIC ACID 1 MG TABLET PO SCH (08:18)
[2017-09-04] MEDS: OXCARBAZEPINE 300 MG TABLET PO SCH (08:18)
[2017-09-04] MEDS: THIAMINE HCL 100 MG TABLET PO SCH (08:18)
[2017-09-04 08:19] LABS: CREATININE 0.6 mg/dL (0.6-1.3); POTASSIUM 4.2 mmol/L (3.5-5.1)
[2017-09-04] MEDS: MULTIVITAMINS,THERAPEUTIC TABLET PO SCH (08:19)
[2017-09-04] MEDS ORDERED: LORAZEPAM 1 MG TABLET PO SCH (09:00)
--- NOTE | 2017-09-04 10:00 | NUR ---
CRITICAL LAB VALUE strain technician called to report critical lab value of Sodium:123. aware. Pt is A/O x4, stable, primary nurse to continue monitoring.
[2017-09-04 12:00] VITALS: BP 155/102
[2017-09-04] MEDS: CLONIDINE HCL 0.1 MG TABLET PO PRN (12:36)
--- NOTE | 2017-09-04 12:36 | NUR ---
PRN CLONIDINE Patient blood pressure noted 155/102, PRN Clonidine 0.1mg given as ordered. Will cont to monitor and reassess.
--- NOTE | 2017-09-04 13:36 | NUR ---
CLONIDINE REASSESSMENT Upon reassessment pt's blood pressure 138/85 medication effective.
[2017-09-04 16:00] VITALS: BP 137/88
[2017-09-04] MEDS ORDERED: GABA-534 PO (16:43)
[2017-09-04] MEDS ORDERED: CLON0.1T14 PO (16:43)
[2017-09-04] MEDS ORDERED: DIPH50CA37 PO (16:43)
[2017-09-04] MEDS ORDERED: LEVO75TA7 PO (16:43)
--- NOTE | 2017-09-04 19:09 | NUR ---
END OF SHIFT NOTE Pt completed her 5 days Ativan taper tolerated well. Pt received PRN Clonidine 01.mg noted to be effective. Pt compliant with medication and plan of care. Pt attend group and activity. Encouraged Po fluids as ordered. Pt's last CIWA score was 3,at 1600. Vital signs WNL. All needs met. Safety measures in place, call light within reach. Pt endorsed to night nurse in stable condition.
[2017-09-04 19:13] LABS: *ANTI-SCLERODERMA-70 AB <0.2 AI (0.0-0.9); *SJOGREN'S ANTI-SS-A <0.2 AI (0.0-0.9); *SJOGREN'S ANTI-SS-B <0.2 AI (0.0-0.9); *SMITH ANTIBODIES <0.2 AI (0.0-0.9); ANTI-DNA(DS) AB, QN <1 IU/mL (0-9)
--- NOTE | 2017-09-04 19:30 | NUR ---
START OF SHIFT Pt is a 52 y/o female admitted on 08/29/17 for ETOH dependence. Pt was dependent on 1,500 ml of wine daily for 2 years. Pt is full code, NKA, regular diet. Pt reports withdrawal related seizures, last in July 2017. Pt reports PMH of anxiety, depression , hypothyroidism, insomnia, dry eyes, rosacea and laryngeal cancer (currently in remission). Pt is on a 5 day Ativan taper started on 08/30/17, finished taper and is scheduled to be D/C tomorrow. Upon assessment pt is laying in bed watching TV and presents with decreased appetite, moderate anxiety, dysphoria, anhedonia, fatigue, difficulty sleeping. Respirations 16, even and unlabored. Denies N/V/D. Last BM yesterday. Denies chest pain or SOB. Medications due. Safety measures in place. Call light within reach. Will continue to monitor.
[2017-09-04 20:00] VITALS: BP 119/90
[2017-09-04] MEDS ORDERED: OXCARBAZEPINE 150 MG TABLET PO SCH (21:00)
[2017-09-04] MEDS: GABAPENTIN 300 MG CAPSULE PO SCH (21:42)
[2017-09-04] MEDS: diphenhydrAMINE 50 MG CAPSULE PO PRN (21:42)
--- NOTE | 2017-09-04 21:42 | NUR ---
PRN BENADRYL ADMINISTRATION Pt requests sleep aid. Safety measures in place. Call light within reach. Will continue to monitor.
[2017-09-04] MEDS: BIMATOPROST 0.01% OPHT DROP 2.5 ML BOTTLE OP SCH (21:45)
[2017-09-04] MEDS: PATIENT MAY USE OWN MED- MD OK TOP SCH (21:45)
--- NOTE | 2017-09-04 22:42 | NUR ---
PRN BENADRYL REASSESSMENT Pt is laying in bed with eyes closed. Safety measures in place. Call light within reach. Will continue to monitor.
--- NOTE | 2017-09-05 | NUR ---
CIWA DEFERRED Pt is laying in bed with eyes closed, CIWA to be assessed when pt is awake per orders. Safety measures in place. Call light within reach. Will continue to monitor.
--- NOTE | 2017-09-05 04:00 | NUR ---
CIWA DEFERRED AND VITALS REFUSED Pt is laying in bed with eyes closed, CIWA deferred, to be assessed when pt is awake per orders. Respirations 16, even and unlabored. Safety measures in place. Call light within reach. Will continue to monitor.
[2017-09-05] MEDS: LEVOTHYROXINE SODIUM 75 MCG TABLET PO SCH (06:53)
[2017-09-05 07:06] LABS: A/G RATIO 1.1 (0.7-1.7); ALBUMIN 3.9 g/dL (2.9-4.4); ALPHA-1-GLOBULIN 0.4 g/dL (0.0-0.4); ALPHA-2-GLOBULIN 0.8 g/dL (0.4-1.0); GAMMA GLOBULIN 1.1 g/dL (0.4-1.8); GLOBULIN, TOTAL 3.4 g/dL (2.2-3.9); M-SPIKE Not Observed g/dL (Not Observed)
--- NOTE | 2017-09-05 07:06 | NUR ---
END OF SHIFT Pt is a 30 y/o female admitted today for ETOH and opiate dependence. Pt was dependent on Vodka or Whiskey 2 liters daily and 12-24 mg daily for one month. Pt also reports intermittent cocaine and meth use. Pt is full code, allergic to Fentanyl and is currently NPO except medications. Pt is NPO for scheduled abdominal ultrasound today d/t pt complaints of abdominal pain with N/V. Pt reports PMH of metastatic melanoma, left arm lymph node resection, chronic pancreatitis, epilepsy with h/o withdrawal induced seizures, depression, insomnia and hypothyroid. No BP to be taken on left arm d/t resection of left lymph node. Pt is on a 1:1 for unsteady gait. Pt has IVF NS 0.9 % running at 125 ml/hour in right AC with 22 gauge. IV site intact/patent, no redness or swelling noted. VTE pumps in place for VTE score 2, no chemical prophylaxis at this time. Pt presented with body aches 7/10, moderate anxiety, moderate to severe agitation, nausea, runny/stuffy nose, flushed skin, sweats, difficulty concentrating, unsteady gait, restlessness while awake, decreased appetite, fine tremors, fatigue. Scheduled medications and PRN Subutex 4 mg, Zofran, Robaxin and Ativan 2 mg x 1 administered, effective in S/S of withdrawal as verbalized by pt and AEB pt sleeping throughout the night. Last COW 17 and CIWA 19 at 2039, unable to reassess d/t pt sleeping. Pt slept 7 hours. Intake 100 ml, void x 0, stool x 0. 1:1 sitter at bedside. Safety measures in place. Pts needs have been met. Endorsed to day shift nurse. Addendum: 09/05/17 at 0709 by MELBA COUGHLIN RN WRONG PATIENT CORRECT END OF SHIFT Pt is a 52 y/o female admitted on 08/29/17 for ETOH dependence. Pt was dependent on 1,500 ml of wine daily for 2 years. Pt is full code, NKA, regular diet. Pt reports withdrawal related seizures, last in July 2017. Pt reports PMH of anxiety, depression , hypothyroidism, insomnia, dry eyes, rosacea and laryngeal cancer (currently in remission). Pt is on a 5 day Ativan taper started on 08/30/17, finished taper 09/04/17 and is scheduled to be D/C today. Pt presented with decreased appetite, moderate anxiety, dysphoria, anhedonia, fatigue, difficulty sleeping. Scheduled medications and PRN Benadryl administered, effective in S/S of withdrawal as verbalized by pt. Last CIWA 4 at 1999, unable to assess d/t pt sleeping. Pt slept 7 hours. Intake 1027 ml, void x 4, stool x 0. Safety measures in place. Call light within reach. Pts needs have been met. Endorsed to [facility] shift nurse.
--- NOTE | 2017-09-05 07:33 | NUR ---
START OF SHIFT Received report from night nurse. 52 year old female admitted on 08/29/17 for ETOH withdrawals. Pt has completed 5 day Ativan taper and is medically cleared for discharge. Pt is compliant with MD orders and treatment plan. Abdominal xray completed, MD aware of results. No acute distress. Most recent CIWA is 4 related to anxiety. Pt slept for 7 hours, PRN Benadryl administered and effective. V/S remain WNL. All needs met, will continue monitoring.
[2017-09-05] MEDS: THIAMINE HCL 100 MG TABLET PO SCH (08:04)
[2017-09-05] MEDS: GABAPENTIN 300 MG CAPSULE PO SCH (08:04)
[2017-09-05] MEDS: FOLIC ACID 1 MG TABLET PO SCH (08:04)
[2017-09-05] MEDS: MULTIVITAMINS,THERAPEUTIC TABLET PO SCH (08:04)
[2017-09-05 08:06] VITALS: BP 140/87
[2017-09-05 09:39] LABS: CREATININE 0.8 mg/dL (0.6-1.3); PHOSPHOROUS 4.7 mg/dL (2.5-4.9); URIC ACID 2.9 mg/dL (2.6-6.0)
[2017-09-05 09:44] LABS: POTASSIUM 4.7 mmol/L (3.5-5.1)
[2017-09-05 09:49] LABS: THYROID STIMULATING HORMONE 14.34 mIU/mL (0.358-3.740)
--- NOTE | 2017-09-05 10:35 | NUR ---
D/C NOTE Pt is A/O x4. V/S remain WNL. Pt denies SI/HI or hallucinations. Pt shows no s/s of acute withdrawal at this time, and is stable. MD has medically cleared pt for d/c. Education on Hepatitis C, smoking cessation and medication side effects provided. Pt verbalizes understanding. All pt belongings are in belonging bag, , and home medications. Prescriptions were ordered electronically. Refuses PNU vaccination. Pt is being accompanied by [facility] at this time to be transported to rehab. All needs met.
== END 2017-09-05 10:30 | disposition other institution (70) | DRG 895 ==
LOC: SRC 18:18
PROVIDERS: ADMIT Internal Medicine; ATTEND Internal Medicine
PROC: HZ2ZZZZ Detoxification Services for Substance Abuse Treatment (ICD-10-PCS; principal; 2017-08-29)
PROC: HZ31ZZZ Individual Counseling for Substance Abuse Treatment, Behavioral (ICD-10-PCS; 2017-08-30)
PROC: HZ41ZZZ Group Counseling for Substance Abuse Treatment, Behavioral (ICD-10-PCS; 2017-09-01)
DX: F10.232 Alcohol dependence with withdrawal with perceptual disturbance (principal); D61.811 Other drug-induced pancytopenia; E22.2 Syndrome of inappropriate secretion of antidiuretic hormone; I15.9 Secondary hypertension, unspecified; K70.10 Alcoholic hepatitis without ascites; K70.0 Alcoholic fatty liver; F10.220 Alcohol dependence with intoxication, uncomplicated; Y90.8 Blood alcohol level of 240 mg/100 ml or more; Z87.820 Personal history of traumatic brain injury; Z91.89 Other specified personal risk factors, not elsewhere classified; L71.9 Rosacea, unspecified; Z80.0 Family history of malignant neoplasm of digestive organs; Z81.1 Family history of alcohol abuse and dependence; G89.29 Other chronic pain; F41.9 Anxiety disorder, unspecified; F17.211 Nicotine dependence, cigarettes, in remission; E03.9 Hypothyroidism, unspecified; G47.00 Insomnia, unspecified; T42.1X5A Adverse effect of iminostilbenes, initial encounter; Y92.239 Unspecified place in hospital as the place of occurrence of the external cause; M54.5 Low back pain; E83.42 Hypomagnesemia; G62.1 Alcoholic polyneuropathy; Z85.21 Personal history of malignant neoplasm of larynx; E07.81 Sick-euthyroid syndrome; F10.288 Alcohol dependence with other alcohol-induced disorder; Z86.69 Personal history of other diseases of the nervous system and sense organs
CPT/HCPCS: 36415; 70030-TC; 76705; 80307; 82746; 82784; 83690; 83735; 84100; 84155; 84165; 84300; 84443; 84550; 84703; 85025; 86038; 86140; 86334; 86430; 86580; 86592; 86705; 86803; 87340; 87806; 97116; 97530; G0480; J2405; J3411; J7030; Q0163